=== PATIENT | female | born 1970 | race Caucasian/White ===

== ENCOUNTER 2019-10-16 16:02 | Outpatient (CLI) | payer OTHER, SELFPAY ==
[2019-10-19 02:56] LABS: FSH 47.4 mIU/mL (***)
[2019-10-20 22:15] LABS: Estradiol, Ultrasensitive 126 pg/mL
== END 2019-10-16 16:03 | disposition home or self-care (01) ==
LOC: ANHLAB 16:05
PROVIDERS: Visit Provider Obstetrics & Gynecology
DX: N95.1 Menopausal and female climacteric states (principal)
CPT/HCPCS: 36415; 82670; 83001

== ENCOUNTER 2022-07-22 16:46 | Outpatient (CLI) | payer OTHER, SELFPAY ==
[2022-07-22 17:55] LABS: Thyroid Stimulating Hormone 0.862 uIU/mL (0.465-4.680)
[2022-07-22 18:26] LABS: Free T4 Free Thyroxine 1.24 ng/mL (0.78-2.19)
== END 2022-07-22 16:47 | disposition home or self-care (01) ==
LOC: ANHLAB 16:48
PROVIDERS: Visit Provider Obstetrics & Gynecology
DX: R63.5 Abnormal weight gain (principal)
CPT/HCPCS: 36415; 84439; 84443

== ENCOUNTER 2023-01-30 08:01 | Outpatient (CLI) | payer OTHER, SELFPAY ==
[2023-01-30 08:43] LABS: Anion Gap 5 mmol/L (8-16); Blood Urea Nitrogen 15 mg/dL (7-17); Calcium 9.2 mg/dL (8.4-10.2); Carbon Dioxide 28 mmol/L (22-30); Chloride 105 mmol/L (98-107); Cholesterol 174 mg/dL (0-200); Estimated Glomerular Filt Rate > 60; Glucose 92 mg/dL (65-110); HDL Direct 66 mg/dL; Potassium 4.3 mmol/L (3.4-5.0); Sodium 138 mmol/L (137-145); Triglycerides 56 mg/dL (<150)
[2023-01-30 08:47] LABS: Basophils Percent Auto 0.6 % (0.2-1.2); Eosinophils Absolute Auto 0.2 K/mm3 (0-0.3); Eosinophils Percent Auto 2.3 % (0-4.4); Hematocrit 38.8 % (37.0-47.0); Hemoglobin 12.8 g/dL (12.0-15.0); Immature Granulocyte Absolute 0.02 K/mm3 (0.00-0.031); Immature Granulocyte Percent A 0.3 % (0-0.5); Lymphocytes Absolute Auto 1.52 K/mm3 (0.9-3.2); Mean Corpuscular Hemoglobin 29.8 pg (26-34); Mean Corpuscular Volume 90.2 fl (80-100); Mean Platelet Volume 10.2 fl (7.4-10.4); Monocytes Absolute Auto 0.6 K/mm3 (0.1-0.6); Monocytes Percent Auto 9.1 % (2.6-8.5); Neutrophils Absolute Auto 4.3 K/mm3 (1.3-6.7); Neutrophils Percent Auto 64.7 % (45.5-73.1); Platelet Count Result 241 k/mm3 (150-375); Red Cell Distribution Width 13.5 % (11.5-14.5); White Blood Count 6.6 K/mm3 (4.5-10.0)
[2023-01-30 08:53] LABS: LDL Cholesterol Direct 77 mg/dL
[2023-01-30 09:25] LABS: Vitamin D 25 Hydroxy 38.3 ng/mL
== END 2023-01-30 08:02 | disposition home or self-care (01) ==
PROVIDERS: Visit Provider Nurse Practitioner Family
DX: R63.5 Abnormal weight gain (principal); R03.0 Elevated blood-pressure reading, without diagnosis of hypertension; F41.9 Anxiety disorder, unspecified; E55.9 Vitamin D deficiency, unspecified
CPT/HCPCS: 36415; 80048; 80061; 82306; 85025

== ENCOUNTER 2023-02-08 09:35 | Day surgery (SDC) | payer OTHER, SELFPAY ==
[2023-02-01 09:40] VITALS: BMI 30.9
[2023-02-01 13:23] VITALS: BMI 30.8
--- NOTE | 2023-02-08 07:09 | WPDANESEPPF ---
Anes - Initial Pre Proc Eval Procedure: Operation Date: 02/08/23 11:30 Proposed Procedures p Screening Colonoscopy - Alvarado Betts MD Date/Time: 02/08/23 07:09 Surgeon: Alvarado Betts MD Pre Op Diagnosis: Neoplasm Screening Patient Data Age: 52 Gender: F Height: 1.6 m Weight: 79 kg Allergies Allergy/AdvReac Type Severity Reaction Status Date / Time No Known Allergies Allergy Verified 02/08/23 10:19 Home Medications Medication Instructions Recorded Confirmed Type estradiol 0.5 mg tablet 0.5 mg PO DAILY #90 tabs 01/19/23 02/08/23 Rx multivitamin 1 tablet PO DAILY 01/19/23 02/08/23 History polyethylene glycol 3350 17 17 g PO DAILY 01/19/23 02/08/23 History gram/dose oral powder (Miralax) magnesium 250 mg tablet 250 mg PO DAILY 01/29/23 02/08/23 History omega 0-hnw-ykd-fish oil 100 1 cap PO DAILY 01/29/23 02/08/23 History mg-160 mg-1,000 mg capsule (Fish Oil) omeprazole 20 mg capsule,delayed 20 mg PO DAILY #30 caps 01/29/23 02/08/23 Rx release tumeric 100 mg-bull 150 mg-olive 1 cap PO DAILY 01/29/23 02/08/23 History 50 mg-oreg 150 mg-caprylate capsule Patient hx anesthesia problems: none Family hx anesthesia problems: none Results Review: All pre-operative results and documents have been reviewed as part of the pre-operative evaluation. [facility] Past Medical History Medical History (Updated 02/08/23 @ 11:50 by Alvarado Betts MD) Abnormal Pap smear of cervix 01/1995 [facility] Colon cancer screening Constipation HPV in female Screening mammogram, encounter for Vulvodynia Surgical History Surgical History History of abdominoplasty (~08/2012) History of 03/21/96 primary c/s--cephalopelvic disproportion 05/21/00 rpt c/s w/tubal History of colposcopy with cervical biopsy (02/24/95) hpv, acute & chronic cervicitis, squamous metaplasia History of dilation and curettage (~03/21/94) 03/1994 suction d&c--miscarriage 06/2009 hscope d&c--menorrhagia--benign History of repair of ACL (~05/2005) History of robot-assisted laparoscopic hysterectomy (02/28/15) leiomyomata History of tubal ligation (~1999) Family History Family History Grandparent Cerebrovascular accident maternal grandmother Social History Social History (Updated 01/29/23 @ 10:15 by Roxann Babb) Social History: Caffeine-daily Smoking status: Never smoker Alcohol intake: current Drinks per week: 0 Alcohol use details: ONE A MONTH Substance use: never Substance use type: does not use Lack of Transportation: No Lack of Food: Never True Current Housing: I Have Housing Concerned About Future Housing: No Difficulty Paying Gas/Electric Bills: No Difficulty Paying for Meds: No Currently Unemployed: No Education: Bachelor's Degree Difficulty w/ Childcare or Family Care: No Living arrangements: with family Additional living arrangements comments: Occupation/Education: occupation 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 Gender identity (if verbalized by the patient): Female Sexual Orientation (if Verbalized by the Patient): Straight or Heterosexual Spiritual care concerns: No Anes - Eval Final PreProcedure Day of Procedure 02/08/23 07:09 Patient weight: obese Heart: regular rate and rhythm Lungs: clear to auscultation Airway: Mallampati scale class II Neurological: alert and oriented Last oral intake: >/= 8 hours ASA classification: II Emergent: no Anesthetic plan: proceed Anesthesia type and monitoring: general GIVS and standard monitoring Results Review: All pre-operative results and documents have been reviewed as part of the pre-operative evaluation. Informed Consent: The patient's anesthetic plan and its attendant risks and benefits were discussed with the patient/f
[2023-02-08 10:24] VITALS: BP 158/83; PULSE 72; RESP 16; TEMP 37.1; O2SAT 99
[2023-02-08] MEDS: LACTATED RINGERS 1,000 ML 150 ML IV CONT (10:33)
--- NOTE | 2023-02-08 11:49 | PM.HPGS ---
History of Present Illness History of Present Illness Consent: Risks, benefits, and alternatives have been discussed and questions answered. Patient agrees to proceed with procedure. Chief complaint: Neoplasm Screening Narrative: Arline Tenorio is a 52 year old female here for first screening colonoscopy Review of Systems Constitutional: Constitutional: Denies headache(s) and Denies weakness Eyes: Eyes: Denies blurry vision ENT: Reports Normal hearing present, Denies headache(s) and Denies neck pain Cardiovascular: Cardiovascular: Denies chest pain and Denies dyspnea Respiratory: Respiratory: Denies dyspnea Gastrointestinal: Gastrointestinal: Reports no additional gastrointestinal complaints Genitourinary: Genitourinary: Denies dysuria Musculoskeletal: Musculoskeletal: Denies neck pain Integumentary/Breasts: Skin/Breast: Denies dry skin Neurologic: Reports Normal hearing present, Denies headache(s) and Denies weakness Psychiatric: Psychiatric: Denies anxiety Endocrine: Endocrine: Denies change in body appearance Hematologic/Lymphatic: Hematologic/Lymphatic: Denies easy bleeding Allergic/Immunologic: Allergic/Immunologic: Denies urticaria PMFSH Past Medical History Medical History (Updated 02/08/23 @ 11:50 by Alvarado Betts MD) Abnormal Pap smear of cervix 01/1995 [facility] Colon cancer screening Constipation HPV in female Screening mammogram, encounter for Vulvodynia Surgical History Surgical History History of abdominoplasty (~08/2012) History of 03/21/96 primary c/s--cephalopelvic disproportion 05/21/00 rpt c/s w/tubal History of colposcopy with cervical biopsy (02/24/95) hpv, acute & chronic cervicitis, squamous metaplasia History of dilation and curettage (~03/21/94) 03/1994 suction d&c--miscarriage 06/2009 hscope d&c--menorrhagia--benign History of repair of ACL (~05/2005) History of robot-assisted laparoscopic hysterectomy (02/28/15) leiomyomata History of tubal ligation (~1999) Family History Family History Grandparent Cerebrovascular accident maternal grandmother Social History Social History (Updated 01/29/23 @ 10:15 by Roxann Stanton Social History: Caffeine-daily Smoking status: Never smoker Alcohol intake: current Drinks per week: 0 Alcohol use details: ONE A MONTH Substance use: never Substance use type: does not use Lack of Transportation: No Lack of Food: Never True Current Housing: I Have Housing Concerned About Future Housing: No Difficulty Paying Gas/Electric Bills: No Difficulty Paying for Meds: No Currently Unemployed: No Education: Bachelor's Degree Difficulty w/ Childcare or Family Care: No Living arrangements: with family Additional living arrangements comments: Occupation/Education: occupation 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 Gender identity (if verbalized by the patient): Female Sexual Orientation (if Verbalized by the Patient): Straight or Heterosexual Spiritual care concerns: No Meds Home Medications and Allergies Home Medications Medication Instructions Recorded Confirmed Type estradiol 0.5 mg tablet 0.5 mg PO DAILY #90 tabs 01/19/23 02/08/23 Rx multivitamin 1 tablet PO DAILY 01/19/23 02/08/23 History polyethylene glycol 3350 17 17 g PO DAILY 01/19/23 02/08/23 History gram/dose oral powder (Miralax) magnesium 250 mg tablet 250 mg PO DAILY 01/29/23 02/08/23 History omega 0-oji-owc-fish oil 100 1 cap PO DAILY 01/29/23 02/08/23 History mg-160 mg-1,000 mg capsule (Fish Oil) omeprazole 20 mg capsule,delayed 20 mg PO DAILY #30 caps 01/29/23 02/08/23 Rx release tumeric 100 mg-bull 150 mg-olive 1 cap PO DAILY 01/29/23 02/08/23 History 50 mg-oreg 150 mg-caprylate capsule Allergies Allergy/AdvReac Type Severity R
[2023-02-08 12:09] VITALS: BP 104/62; PULSE 66; RESP 16; O2SAT 100
[2023-02-08 12:19] VITALS: BP 115/70; PULSE 60; RESP 20; O2SAT 99
[2023-02-08 12:29] VITALS: BP 122/78; PULSE 57; RESP 20; O2SAT 100
--- NOTE | 2023-02-08 12:37 | WPDANESPN ---
Anes - Prog Note Post-Op Date/Time: 02/08/23 12:37 Cardiovascular status: normal Respiratory status: normal Airway patency: baseline Mental status: baseline Post-Op hydration status: normal Vital Signs: Last Vital Signs Temp 37.1 C 02/08/23 10:24 Pulse 60 02/08/23 12:19 Resp 20 02/08/23 12:19 BP 115/70 02/08/23 12:19 Pulse Ox 99 02/08/23 12:19 O2 Del Method Room Air 02/08/23 12:19 Pain Score (VAS): 0 I/O: Intake & Output 02/07/23 02/08/23 02/08/23 23:59 07:59 15:59 Intake Total 200 Balance 200 Post-procedural complaints: none Patient Feedback: Patient satisfied with anesthetic care. Other Findings: Patient vital signs back to baseline. Patient denies nausea and vomiting. Patient's pain under control. Patient OK for discharge.
== END 2023-02-08 12:43 | disposition home or self-care (01) ==
PROVIDERS: PCP Nurse Practitioner Family; Visit Provider Internal Medicine Gastroenterology
PROC: 0DJD8ZZ Inspection of Lower Intestinal Tract, Via Natural or Artificial Opening Endoscopic (ICD-10-PCS; CPT 45378; principal; 2023-02-08 11:30)
DX: Z12.11 Encounter for screening for malignant neoplasm of colon (principal); K64.4 Residual hemorrhoidal skin tags; K64.8 Other hemorrhoids
CPT/HCPCS: 45378